=== PATIENT | female | born 1970 | race African-American/Black ===

== ENCOUNTER 2017-03-16 16:24 | Emergency (ER) | payer OTHER ==
[~2017-03-16] VITALS: Ht 167.6 cm; Wt 68.5 kg
[2017-03-16 16:31] VITALS: Ht 167.6 cm; Wt 68.5 kg
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
[2017-03-16] MEDS ORDERED: NO ROUTINE MEDS (16:49)
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
[2017-03-16] MEDS ORDERED: ORPHENADRINE 60mg/2ml INJECTION IM ONE (17:15)
[2017-03-16] MEDS ORDERED: KETOROLAC 60mg/2ml INJECTION IM ONE (17:15)
[2017-03-16 17:33] LABS: BASOPHILS % (AUTO) 0.4 % (0-2); EOSINOPHILS # (AUTO) 0.1 T/MM3 (0-0.5); EOSINOPHILS % (AUTO) 1.2 % (0-4); HCT - HEMATOCRIT 39.9 % (36-46); HGB - HEMOGLOBIN 13.2 GM/DL (12-16); IMMATURE GRANULOCYTE # (AUTO) 0.01 T/MM3 (0.00-0.03); IMMATURE GRANULOCYTE % (AUTO) 0.1 % (0.0-0.5); LYMPHOCYTES # (AUTO) 2.9 T/MM3 (1-4.8); LYMPHOCYTES % (AUTO) 38.2 % (23-45); MEAN CORPUSCULAR HGB 25.4 UUG (26-34); MEAN CORPUSCULAR HGB CONC(MCHC 33.1 GM/DL (31-37); MEAN CORPUSCULAR VOLUME 76.9 UM3 (80-100); MEAN PLATELET VOLUME 9.1 UM3 (9.4-12.4); MONOCYTES # (AUTO) 0.3 T/MM3 (0-0.8); MONOCYTES % (AUTO) 3.9 % (0-9.0); NEUTROPHILS #(AUTO)-ABSOLUTE 4.2 T/MM3 (1.8-7.7); NEUTROPHILS % (AUTO) 56.2 % (33-66); RED BLOOD COUNT 5.19 M/MM3 (4.00-5.20); WBC - WHITE BLOOD COUNT 7.5 T/MM3 (4.5-11.0)
[2017-03-16 17:45] LABS: ANION GAP 13 MEQ/L (5-15); BUN/CREATININE RATIO 18 RATIO (6-26); CALCIUM 9.4 MG/DL (8.4-10.2); CHLORIDE 106 MEQ/L (98-107); CO2 - CARBON DIOXIDE 26 MEQ/L (22-30); CREATININE 0.8 MG/DL (0.7-1.2); GLOMERULAR FILTRATION RATE 78; GLUCOSE 88 MG/DL (65-110); SODIUM 145 MEQ/L (134-144)
[2017-03-16 18:27] VITALS: BP 130/66; PULSE 51; RESP 16; TEMP 98; O2SAT 99
--- NOTE | 2017-03-16 18:27 | NUR ---
DEPART PT DEPARTED IN CUSTODY, CUFFS AROUND BILATERAL ANKLES. [facility] Lynn HERNANDEZ APRN.
== END 2017-03-16 18:27 ==
LOC: ED 16:24
DX: M54.5 Low back pain (principal); W19.XXXA Unspecified fall, initial encounter; Y93.9 Activity, unspecified; Y92.89 Other specified places as the place of occurrence of the external cause; Y99.8 Other external cause status
CPT/HCPCS: 36415; 80048; 85025; 96372; 99283; J1885; J2360